=== PATIENT | female | born 2005 | race Caucasian/White ===

== ENCOUNTER 2024-10-12 06:33 | Emergency (ER) | payer OTHER, SELFPAY ==
--- NOTE | ~2024-10-12 | XR_ITS ---
EXAMINATION: XR WRIST, RIGHT CLINICAL INFORMATION: Pain. COMPARISON: None available. TECHNIQUE: Four views of the right wrist. FINDINGS: Radiopaque marker placed by technologist to indicate the area of concern as indicated by the patient along the radial aspect of the wrist. There is a comminuted, minimally displaced fracture of the distal radius extending to the distal articular surface. Adjacent soft tissue swelling. Bone mineralization is normal. XR/XR wrist RT min 3V IMPRESSION: Comminuted, minimally displaced fracture of the distal radius extending to the distal articular surface. This study was presented today to October 12, 2024 for interpretation. Stat results provided at this time as requested by referring provider. Electronically signed by: Li Valdes MD 10/12/2024 08:09 AM [facility]
[2024-10-12 06:43] VITALS: BP 110/70; BP 113/80; PULSE 70; PULSE 82; RESP 20; TEMP 36.7; O2SAT 98; O2SAT 99; BMI 21.5
--- NOTE | 2024-10-12 07:42 | ED.EXTPRO ---
HPI - Extremity Problem General Chief complaint: Extremity Injury, Upper Stated complaint: wrist injury opening swinging door minor swelling Time Seen by Provider: 10/12/24 07:32 Source: patient Mode of arrival: ambulatory Limitations: no limitations History of Present Illness ED Provider: Felisa Jackson PA-C HPI Narrative: 19 year old right hand dominant female seen in the ED for concerns regarding right wrist/hand/arm pain after pushing a door open approx 9 hours ago. PT reports that their wrist bent backwards when they pushed the door open. Currently experiencing 8/10, constant aching pain at the medial/distal aspect of the right forearm; pain radiates proximally to the elbow on the radial side and distally to all fingers. Very limited ROM of right wrist but sensation and pulses remain intact. Denies chest pain, SOB, palpitations, generalized weakness. Denies fever, chills, abdominal pain, nausea, vomiting, diarrhea, constipation. MD Complaint: extremity pain and extremity swelling Onset (ago): hour(s) (9) Pain Consistency: constant Location: right and upper extremity Severity scale (1-10): 8 Quality: aching Radiation: proximal and distal Relieving factors: nothing Exacerbating factors: range of motion Related Data Previous Rx's ?Medication ?Instructions ?Recorded naproxen 500 mg tablet 500 mg PO BID PRN pain #20 tabs 10/12/24 oxycodone 5 mg tablet 5 mg PO BID PRN severe pain (scale 10/12/24 score 7-10) #6 tabs Allergies Allergy/AdvReac Type Severity Reaction Status Date / Time No Known Allergies Allergy Verified 10/12/24 06:47 Review of Systems Review of Systems: Yes all other systems are reviewed and are negative [facility] Social History Social History Smoked in Last 30 Days: Yes Use of substances other than those prescribed or required for medical reasons: Yes Substance Use Type: Marijuana Advance Directives: No Advance Directives Information Provided: Yes Do you have a plan to hurt others: No Plan Patient : No Physical Exam Vital Signs: Vital Signs: Last Vital Signs Temp 99.5 F 10/12/24 08:08 Pulse 83 10/12/24 08:08 Resp 14 10/12/24 08:08 BP 122/65 10/12/24 08:08 Pulse Ox 96 10/12/24 08:08 O2 Del Method Room Air 10/12/24 08:08 BMI result Body Mass Index 21.5 Appearance: Alert. Oriented X3. No acute distress. Head: normocephalic, atraumatic. Eyes: Pupils equal, round and reactive to light. ENT: Pharynx normal. Neck: Normal inspection. Neck supple. CVS: Normal heart rate and rhythm. Pulses normal. Respiratory: No respiratory distress. Breath sounds normal. Abdomen: Soft and nontender. Skin: Skin warm and dry. Normal skin color. Normal skin turgor. No rashes. Extremities: Swelling and early ecchymosis to the right wrist/hand. Tenderness upon palpation to the right wrist, hand, and radial aspect of the forearm proximally up to the elbow. Limited ROM of right wrist. CMS in all extremities. Left upper extremity normal. No lower extremity edema. Neuro/psych: Oriented X 3. CN II-XII intact. Normal speech and cognition. Medications Administered Discontinued Medications Generic Name Dose Route Start Last Admin Trade Name Freq PRN Reason Stop Dose Admin Acetaminophen 975 mg 10/12/24 07:41 10/12/24 07:54 Acetaminophen 325 Mg Tablet PO 10/12/24 07:42 975 mg ONCE ONE Administration Ibuprofen 600 mg 10/12/24 07:41 10/12/24 07:54 Ibuprofen 600 Mg Tablet PO 10/12/24 07:42 600 mg ONCE ONE Administration Oxycodone HCl 5 mg 10/12/24 09:16 10/12/24 09:25 Oxycodone Hcl Immed Release 5 Mg Tablet PO 10/12/24 09:17 5 mg ONCE ONE Administration Medical Decision Making Medical Decision Making MDM Narrative: 19 year old female seen in the ED for concerns regarding right wrist/hand/arm pain after pushing a door open approx 9 hours ago. PT reports that their wrist bent backwards when they pushed the door open. Currently experiencing 8/10, constant aching pain at the medial/distal aspect of the right forearm; pain radiates proximally to the elbow on the radial side and distally to all fingers. Very limited ROM of right wrist but sensation and pulses remain intact. concern for wrist fracutre. NV intact DDX - fracture of the radial head/wrist/bones of the hand - dislocation of the radius/wrist/bones of the hand - sprain of the wrist - tendon injury of the wrist - cyst formation secondary to trauma of the right wrist Plan: - xr showing comminuted distal radius fx - placed in volar wrist splint per orthopedics - feels much better in the splint - pain management - outpatient follow up with ortho - patient counseled and stable for d/c home Differential Diagnosis Differential Diagnoses: The differential diagnosis associated with the presentation includes as above Consult Healthcare Provider Management of the patient was discussed with: Watch Dial Printer jaxson from ortho recommending volar wrist splint Independent Interpretation I performed an independent interpretation of an: Plain X-Ray Interpretation: distal radius fx, comminuted. agree w/ radiology read Radiology Impression Discussion of test interpretation with radiology: I have reviewed the radiologist's reading. Radiologist Impression: EXAMINATION: XR WRIST, RIGHT CLINICAL INFORMATION: Pain. COMPARISON: None available. TECHNIQUE: Four views of the right wrist. FINDINGS: Radiopaque marker placed by technologist to indicate the area of concern as indicated by the patient along the radial aspect of the wrist. There is a comminuted, minimally displaced fracture of the distal radius extending to the distal articular surface. Adjacent soft tissue swelling. Bone mineralization is normal. XR/XR wrist RT min 3V IMPRESSION: Comminuted, minimally disp Prescription Management I considered prescription management with: Pain Medication Social Determinants Patient?s care significantly limited by Social Determinants of Health including: Other Social Determinant of Health (lives in [place], no providers here. ) Procedures Orthopedic Splinting/Casting Injury #1: Side: right Upper Extremity Injury Location: wrist Upper Extremity Immobilizer: volar splint Critical Care Time Critical Care Time Critical Care Time: No Discharge Plan Discharge Clinical Impression: Distal radial fracture Qualifiers: Encounter type: initial encounter Fracture type: closed Fracture morphology: other fracture Laterality: right Qualified Code(s): S52.591A - Other fractures of lower end of right radius, initial encounter for closed fracture Patient Disposition: Home, Self-Care Instructions: Wrist Fracture in Adults (ED) Additional Instructions: Your x-ray today showed broken wrist. You were placed in a temporary splint until a cast can be placed. Wear the splint at all times until your evaluated by orthopedics. You can not get it wet, cover it while you shower. Elevate your arm when possible to help with swelling. Wear the sling to help with elevation as needed. Take the prescribed naproxen as needed for [id number] pain. Take the prescribed oxycodone as needed for severe pain only. Call for an orthopedics appointment, name and number below. XR/XR wrist RT min 3V IMPRESSION: Comminuted, minimally displaced fracture of the distal radius extending to the distal articular surface. Prescriptions: New naproxen 500 mg tablet 500 mg PO BID PRN (Reason: pain) Qty: 20 0RF oxycodone 5 mg tablet 5 mg PO BID PRN (Reason: severe pain (scale score 7-10)) Qty: 6 0RF Rx Instructions: Partial Fill upon patient request. Referrals: [facility] [place] [facility] [Provider Group] (distal radius fracture) Stand Alone Forms: Work/School Release Print Language: [place]
[2024-10-12] MEDS: Acetaminophen 325 MG TABLET 975 MG PO (07:54)
[2024-10-12] MEDS: Ibuprofen 600 MG TABLET PO (07:54)
[2024-10-12 08:08] VITALS: BP 122/65; PULSE 83; RESP 14; TEMP 37.5; O2SAT 96
[2024-10-12] MEDS: oxyCODONE HCl Immed Release 5 MG TABLET PO (09:25)
[2024-10-12 10:56] VITALS: BP 122/65; PULSE 83; RESP 14; TEMP 37.5; O2SAT 96
== END 2024-10-12 10:56 | disposition home or self-care (01) ==
PROVIDERS: Emergency Provider Emergency Medicine
DX: S52.591A Other fractures of lower end of right radius, initial encounter for closed fracture (principal); X58.XXXA Exposure to other specified factors, initial encounter; Y93.89 Activity, other specified; Y92.9 Unspecified place or not applicable; Y99.9 Unspecified external cause status; M25.531 Pain in right wrist
CPT/HCPCS: 29125; 73110; 99283; 99284

== ENCOUNTER 2024-10-15 09:33 | Outpatient (REF) | payer OTHER, SELFPAY | END 2024-10-15 09:34 | disposition home or self-care (01) | LOC: HO.HOSX 09:33 | DX: M79.641 Pain in right hand (principal); S52.501D Unspecified fracture of the lower end of right radius, subsequent encounter for closed fracture with routine healing | CPT/HCPCS: 29125; 73110 ==

== ENCOUNTER 2024-10-15 10:27 | Outpatient (AMB) | payer OTHER, SELFPAY ==
--- NOTE | 2024-10-15 10:41 | A.OFFVIS_ITS ---
Vital Signs 10/15/24 10:42 Height 5 ft 4 in Weight 115 lb BMI 19.7 Handedness Right Intake Visit Reasons: FC- ED f/u RT Distal Radial Fx DOI 10/12/24 Intake Note: Fannie is a 19 year old female who presents today as a new patient for a fracture care visit for her right distal radius fracture s/p DOI: 10/11/24. Patient reports pushing a door opening and her wrist bending backwards. She is having constant pain through out her day with no movement. She states if she elevates her hand she does not feel pain. She had numbness in the 1st and 5th digits of her right hand just up until this morning. She's taking Aleve and Tylenol for pain relief and states this does offer relief. Allergies No Known Allergies Allergy (Verified 10/15/24 10:43) HPI HPI FC- ED f/u RT Distal Radial Fx DOI 10/12/24: Details: Patient is a 19 who presents in the follow-up for right distal radius fracture, date of injury 10/12/2024. On that date, the patient reports that she was attempting to open a closed door, when she fell with a significant amount of force into the door and her right wrist ?bent back? and she began to experience immediate pain and swelling in the right hand. Patient was seen in the ED, where she was diagnosed with a right wrist fracture and put into a splint. Today, the patient reports that she was experiencing numbness and tingling of the right hand, but this resolved today. Patient does report that her right wrist is still significantly swollen when compared to the left, and she is still experiencing pain in the right wrist. Patient states that elevation and Tylenol/ibuprofen help with her pain. No other acute complaints or concerns at this time. [facility] Social History (Updated 10/15/24 @ 10:48 by PHAM Murillo) Alcohol intake: current Alcohol intake frequency: holidays/special occasions only Substance Use Type: Marijuana Current occupational status: student Review of Systems Const All systems reviewed & are unremarkable except as noted in HPI and below Physical Exam Vital Signs: BMI result Body Mass Index 19.7 Extrem Other: Patient is alert, oriented, and in no acute distress. Neuro: Normal sensation of the tips of all digits of the right hand at this time Vascular: Cap refill brisk Pain: Patient reports tenderness to very gentle palpation about the right wrist No anatomical snuffbox tenderness ROM: Patient is able to make a closed fist and extend all digits of the right hand fully Skin: No lacerations or abrasions. General: There is noted to be moderate edema of the right wrist compared to the left No ecchymosis, erythema, or evidence of infection. Psych: Appears grossly normal Affect normal Attitude cooperative Office Procedures AMB Fracture Care Details: Right distal radius fracture Fracture Billing Code: Fracture Billing Code Casting/Splints 87990-[id number] Splint Application Procedure code (CPT) selection complete Results Reviewed Results Reviewed: X-rays obtained in the office today and independently reviewed by me, Bryan Samayoa PA-C, demonstrate very minimally displaced fracture of the right distal radius with intra-articular split. Assessment & Plan Assessment & Plan (1) Fracture of right distal radius: Code(s): S52.501A - Unspecified fracture of the lower end of right radius, initial encounter for closed fracture Category: Medical Plan 1. Right distal radius fracture Date of injury 10/12/2024 Patient is educated about this injury Patient is educated about the typical recovery course At this time, patient was placed into a volar wrist splint to be worn at all times Patient is educated about proper splint care and precautions Patient is educated that under normal circumstances, we would see her back in 1 week for placement into a cast, but as the patient was traveling home to [place] in 3 days, she was advised to make an appointment with an orthopedic surgeon at home for follow-up evaluation and further treatment plan Patient was advised that when she returns here for school, we gladly see her again for continuation of her care Patient was advised on conservative pain management measures, such as rest, ice, elevation, and [id number] pain medication as needed Patient was amenable to this plan Patient will follow-up upon her return from [place], sooner with any acute c oncerns Orders: Orders XR wrist RT w scaphoid Today M79.641 - Pain in right hand Medications: Discontinued naproxen Discontinued Reason: Patient no longer taking 500 mg PO BID PRN 20 tabs 0RF pain oxycodone Partial Fill upon patient request. Discontinued Reason: Patient Refused 5 mg PO BID PRN 6 tabs 0RF severe pain (scale score 7-10) Coding Level of Care Code New Pt Level 3 (38425) Diagnoses Fracture of right distal radius S52.501A CPT Codes Fracture Care - Fracture Billing Code: Fracture Billing Code ([id number]) Splint - CPT: 15213-[id number] Splint Application ([id number])
[2024-10-15 10:42] VITALS: BMI 19.7
== END 2024-10-15 11:39 | disposition home or self-care (01) ==
DX: S52.501A Unspecified fracture of the lower end of right radius, initial encounter for closed fracture (principal)
CPT/HCPCS: 29125; 99204

== ENCOUNTER 2024-10-18 11:09 | Outpatient (REF) | payer OTHER, SELFPAY | END 2024-10-18 11:10 | disposition home or self-care (01) | LOC: HO.HOSX 11:09 | DX: M25.531 Pain in right wrist (principal) | CPT/HCPCS: 73110 ==